=== PATIENT | female | born 1990 | race Caucasian/White ===

== ENCOUNTER 2023-08-18 07:47 | Day surgery (SDC) | payer OTHER, SELFPAY ==
[2023-08-11 15:04] VITALS: BMI 25.4
[2023-08-18] VITALS (26 sets, daily range): BP systolic 86–113; BP diastolic 50–72; PULSE 46–83; RESP 12–20; TEMP 36.1–37; O2SAT 95–100; BMI 25.4; BMI 27.2
--- NOTE | 2023-08-18 | PATH_ITS ---
[facility] Accession Number: [id number] No. of containers..01 Tissue . 01 Material submitted: . uterus - UTERUS, BILATERAL FALLOPIAN TUBES . 01 Diagnosis: UTERUS, BILATERAL FALLOPIAN TUBES, HYSTERECTOMY AND BILATERAL SALPINGECTOMY (PRESERVED OVARIES): Uterine weight: 95 grams. Cervix: Mild chronic cervicitis, negative for dysplasia or malignancy. Endometrium: Proliferative endometrium, without evidence of endometrial polyps, hyperplasia, atypia, or malignancy. Negative for adenomyosis (on commissary representative sections examined). Negative for leiomyomas (per gross description). Benign bilateral fallopian tubes and small paratubal cysts. Negative for atypia or malignancy. [facility] 08/23/2023 1517 Local . 01 Electronically signed: . Shawn Fatima MD, Pathologist NPI- [id number] . 01 Gross description: . Received in formalin with two identifiers and uterus and bilateral tubes, is an intact uterus (95 grams, 8.4 cm from superior to inferior, 5.9 cm from medial to lateral, and 4.1 cm from anterior to posterior) with attached cervix (3.0 x 2.9 cm), and two detached fallopian tubes (3.5 x 0.8 cm and 1.4 x 0.7 cm) with no additional adnexa. . The ectocervix is pink-mariano, smooth and glistening with a circular os 0.7 cm in diameter. The anterior paracervical margin is inked blue while the posterior paracervical margin is inked black. The serosa is mariano and ragged on the anterior surface with pinpoint areas of hemorrhage across an area measuring up to 1.2 cm in greatest dimension. . The endocervical canal has mariano herringbone mucosa measuring 2.7 cm in length. The endometrial cavity measures 2.3 cm from cornu to cornu and 4.3 cm in length with red, velvety endometrium that averages 0.1 cm thick. The myometrium is mariano with moderate trabeculation measuring up to 1.9 cm in maximum thickness with no lesions identified. . The longer tube has mariano smooth serosa with no cysts identified and a discontinuous stellate lumen. The shorter fallopian tube has mariano smooth serosa with no cysts identified. Sectioning reveals a possible stellate lumen. . [employer] sections are submitted as follows: A1: Anterior cervix. A2: Posterior cervix. A3: Anterior full thickness section. A$: Posterior full thickness section. A5: Roughened hemorrhagic serosa. A6: Longer fallopian tube to include one-half of bisected fimbriae and cross sections. A7: Entire shorter fallopian tube. ([id number]) /MRV 08/19/2023 2154 Local . 01 Pathologist provided ICD-10: N92.0, N94.6 . 01 CPT . 114130 Specimen Comment: A courtesy copy of this report has been sent to [phone] Performed at: 01 [facility] [address] [place] [address], [place], [place] [id number] MD David Durán MD Phone: [phone]
[2023-08-18] MEDS: LACTATED RINGERS 1,000 ML 42 ML IV ×3 (08:35→12:25)
[2023-08-18] MEDS: ACETAMINOPHEN 325 MG TABLET 975 MG PO ×2 (08:40→08:56)
--- NOTE | 2023-08-18 09:20 | PM.PREOP ---
Pre-operative Note COVID-19 COVID-19 status: Not tested Interval Note History & Physical reviewed/Exam performed by Physician: Yes Changes to H&P: No
[2023-08-18] MEDS: CEFAZOLIN 2 GM/100 ML PREMIX 100 ML IV (09:50)
--- NOTE | 2023-08-18 10:13 | SUR.OPER ---
Lithotomy on padded OR bed. [place] Pad Positioner under torso. Head on pillow, arms padded and tucked at sides. Legs secured in padded yellow fins stirrups.
[2023-08-18] MEDS: ROPIVACAINE 0.2% PF 2 MG/ML 10ML AMP 20 ML INJ (10:20)
[2023-08-18] MEDS: BUPIVACAINE 0.5% (PF) 30 ML, EPINEPHrine 0.15 MG INJ (10:21)
[2023-08-18] MEDS: ONDANSETRON 4 MG/2 ML INJ IV ×2 (11:40→16:49)
--- NOTE | 2023-08-18 11:46 | PM.GYNOP.1 ---
Operative Date/Time/Diagnoses Date of procedure: 08/18/23 Time of procedure: 10:00 Pre-op diagnosis: Menorrhagia Dysmenorrhea History of pelvic peritoneal endometriosis Post-op diagnosis: same Procedure & Clinicians Procedure: Procedures Operation Date: 08/18/23 09:15 Actual Procedure Side Surgeon p Laparoscopic Total Hysterectomy Pepe Alvarenga MD Indications: Christy is a , LMP 06/14/2023 who presents with progressively heavy periods lasting 6 days associated with severe dysmenorrhea and pelvic discomfort throughout entire menstrual cycle. Patient had been maintained on oral contraceptives up until having a bilateral salpingectomy performed in April 2022 at which time she discontinued her oral contraceptives. Since that time her periods have returned to their previous regularity but are heavier, lasting 6-7 days, and are associated with cramping and severe pain to the point where she is incapacitated for at least 4 5 days out of each cycle. Patient has been diagnosed previously with peritoneal endometriosis and she is concerned that her endometriosis may be returning following discontinuation of oral contraceptives. Patient's menses are regular but she does experience some occasional postcoital bleeding. Her last Pap was greater than 3 years ago but all of her Paps prior to that have been normal. Patient states that she underwent an laparoscopy in 2012 and [place] which demonstrated pelvic peritoneal endometriosis but no records are available for review. She has had 2 subsequent pregnancies, each delivered by section. Review of systems is also notable for some premenstrual spotting as well as some deep dyspareunia which is relatively new. Patient had a pelvic ultrasound performed at [facility] on 03/23/2023 which showed the uterus to be anteverted and normal in size measuring 8.9 x 5.2 x 3.4 cm. The myometrium is described as homogeneous. The endometrium measures 5.1 mm in combined thickness and a 6 mm posterior intramural myoma is noted. The right ovary measures 3.1 x 2.9 x 1.4 cm with a calculated ovarian volume of 6.6 cc. Left ovary measures 2.5 x 2.2 x 2.7 cm with a calculated ovarian volume of 7.7 cc. The ovaries both have a normal sonographic appearance with less than 12 follicles seen in each ovary. No adnexal masses were noted. No pathologic free abdominal or pelvic fluid is noted. Pap obtained and submitted; Normal Endometrial biopsy performed; Normal We had an extensive discussion regarding potential causes and treatments for her extremely heavy and painful periods. We discussed the option of hormonal therapy either in the form of control pills, Depo-Provera, or insertion of a Mirena IUD. Patient does not wish to pursue any of these options as no assurance can be given to her that in fact it will resolve her symptomatology. Instead she would very much like to proceed with hysterectomy and ovarian conservation. At the same time it would provide an opportunity to evaluate the pelvis for possible recurrent endometriosis as a contributor to her pain and that is very much the direction she would like to proceed. Pap will be current as of today's visit and due to her history of abnormal Paps in the past, a total laparoscopic hysterectomy would be prudent. In addition bilateral salpingectomy would be performed and those procedures were discussed at length with the patient. After considering all options she wants to proceed with TLH and bilateral salpingectomy with possible excision/fulguration of endometrial implants if found at the time of surgery. She presents today for her scheduled surgery. Surgeon: Pepe Alvarenga [employer] Specialist: Sultana Cramer Anesthesia Type: General Operative Notes Findings: The uterus is normal in size. There are dense adhesions involving the anterior surface the fundus to the anterior abdominal wall and these adhesions extend down to also involve bladder at the level of the hysterotomy site. Both tubes demonstrates changes consistent prior partial salpingectomy. Both ovaries appear normal. There was no evidence of endometriosis in the anterior cul-de-sac. There has an evidence of peritoneal scarring in the posterior cul-de-sac but no active areas endometriosis or seen. The remainder of the and pelvis are unremarkable to laparoscopic inspection. Closure Type: primary Specimen(s): left tube (Portion), right tube (Portion) and uterus Applied: catheter Estimated blood loss (mL): 100 Blood products transfused: none Procedure in detail: With the patient in modified dorsal lithotomy position preparations were made by prepping and draping the patient in usual manner for vaginal surgery and insertion of Dunlap catheter. A pre-surgical time-out was then taken in accordance with [facility] [place] policy. A bivalve speculum was then placed in the vagina and the cervix visualized. The anterior lip of the cervix was then grasped with a single-tooth tenaculum. The uterus was sounded to 9 cm, the endocervical canal dilated slightly, and a VCare uterine manipulator with a medium colpotomy cup was placed. The umbilicus was then infiltrated with 0.5% Marcaine with epinephrine. A 1 cm umbilical incision was made transversely and a Veress needle was used to insufflate the abdominal cavity with carbon dioxide. Once the abdomen was appropriately insufflated, a 5 mm trocar and sleeve were then placed through the umbilical incision. The scope was placed through the trocar and the initial assessment of the intra-abdominal contents carried out. A 2nd and 3rd 5 mm port was then placed 1st in the right mid quadrant from then the left mid quadrant by infiltration of the skin and subcutaneous tissues, a 1 cm transverse incision and insertion of the 5 mm bladeless port. Using a 3 puncture technique, the abdomen and pelvis were inspected laparoscopy. The adhesions involving the aspect uterine fundus and lower uterine segment were taken down with sharp and blunt dissection. Uterus is mobilized with the VCare manipulator and attention turned to the left adnexa. The distal tube was then grasped and the fimbria ovarica divided after coagulation with the PowerSeal device. The dissection was then carried out across the mesosalpinx and the distal tubal remnant was removed through 1 of the laparoscopy ports. The dissection was then carried down using the PowerSeal device so as to divide the utero-ovarian ligament and the round ligament with blunt and sharp dissection of the broad down to the level of the uterine artery. The uterine artery was then skeletonized after development of a bladder flap, coagulated, and divided. Once hemostasis was assured on the left side attention was turned to the right and the tube, utero-ovarian ligament, round ligament, and broad ligament were dissected in a fashion exactly the same as it had been on the left. The right uterine artery was then visualized after skeletonization and coagulated and divided. The uterus was seen to guevara after coagulation of both your arteries and the cup was identified through the vaginal muscularis at its insertion with the body of the cervix. Circumferential excision of the vaginal cup was accomplished without difficulty using monopolar current and the uterus mobilized. The uterus was then removed through the vagina and the vaginal cuff closed [id number] with a series of 0 Vicryl [id number] stitches. Hemostasis was excellent, the abdomen was re-insufflated, and the pelvis inspected laparoscopically. The pelvis was inspected for any abnormality or bleeding, and the ureters were each seen to be peristalsing freely. With complete hemostasis assured, the pneumoperitoneum was vented and the ports removed. All of the 5 mm ports were then closed with 4-0 Monocryl on the skin using inverted interrupted sutures. Skin glue was placed and after the glue was dried, an appropriate dressing was applied. The case was then terminated, the patient awakened, and then transferred to PACU after having tolerated the procedure well. Complications: none Post-operative Condition: stable Disposition: PACU Plan for aftercare: Recovery in ambulatory surgery in discharge home later today if pain is under control and she is tolerating oral intake well.
[2023-08-18] MEDS: hydrOXYzine 50 MG/ML INJ 25 MG IM (11:50)
[2023-08-18] MEDS: METOCLOPRAMIDE 10 MG/2 ML INJ IV (11:59)
[2023-08-18] MEDS: ACETAMINOPHEN 325 MG TABLET 650 MG PO ×2 (14:19→18:10)
[2023-08-18] MEDS: LACTATED RINGERS 1,000 ML 100 ML IV (14:20)
[2023-08-18 17:45] LABS: Hematocrit 31.3 % (36-46); Hemoglobin 10.6 g/dL (12.0-16.0)
[2023-08-18] MEDS: LACTATED RINGERS 500 ML 1000 ML IV (18:07)
[2023-08-18] MEDS: KETOROLAC 30 MG/ML VIAL IV (18:08)
--- NOTE | 2023-08-18 19:26 | PC.NURSE ---
Around 1715, after pt blood pressure had stabilized, pt told RN she thought she had to have a bowel movement. RN helped pt to bed side commode, pt unable to have bowel movement and RN helped pt back to bed. Pt felt a little lightheaded during transfer but did not get tunnel vision or did not feel like she would pass out. When RN got pt back to bed, RN noticed drops of bright red blood in the bed side commode. At this time RN was unsure if blood was coming from rectum or vagina. Rn took patients blood pressure when pt got back to bed several times and pt's blood pressure was consistently MAP <65, some MAPs in the 50s. RN assessed pt's abdomen, heard hyperactive bowel sounds but belly felt soft. RN ensured patient was safe, got another nurse to remain bedside, and RN called provider to relay events. RN further assessed patient and determined small amount of bright red blood had come from leonard insertion site. About 15-20 mins later, patients blood pressure came up with ordered bolus, and provider came bedside to assess. RN also reported how patient felt like she had to have a bowel movement, pt continued nausea and vomiting, and low urine output. Provider acknowledged concerns and placed orders. RN left patient after BP had stabilized with several readings of MAP >65 and pt asymptomatic (no lightheadedness/no dizziness).
[2023-08-19] MEDS: KETOROLAC 30 MG/ML VIAL IV ×2 (00:31→06:07)
[2023-08-19] MEDS: ACETAMINOPHEN 325 MG TABLET 650 MG PO (00:32)
[2023-08-19 06:00] VITALS: BP 108/60; PULSE 66; RESP 16; TEMP 36.4; O2SAT 100
[2023-08-19 06:03] VITALS: BP 122/73; PULSE 68; RESP 16; TEMP 36.4; O2SAT 100
[2023-08-19 06:23] LABS: Add Manual Diff / Slide Review NO; Basophils Absolute Auto 0 /uL (0-100); Basophils Percent Auto 0.3 % (0-2); Eosinophils Absolute Auto 0 /uL (0-450); Eosinophils Percent Auto 0.2 % (2-4); Hematocrit 30.6 % (36-46); Hemoglobin 10.6 g/dL (12.0-16.0); Lymphocytes Absolute Auto 2800 /uL (1100-4500); Mean Corpuscular HGB Conc 34.5 % (30-36); Mean Corpuscular Hemoglobin 31.1 PG (26-34); Mean Corpuscular Volume 90.1 fL (80-100); Monocytes Absolute Auto 1200 /uL (0-900); Monocytes Percent Auto 11.8 % (3-14); Neutrophils Absolute Auto 6000 /uL (1500-7000); Neutrophils Percent Auto 59.7 % (50-75); Platelet Count 234 X10^3/uL (150-400); Red Blood Cell Count 3.39 X10^6/uL (4.0-5.2); Red Cell Distribution Width 13.8 % (11.6-14.8); White Blood Cell Count 10.1 X10^3/uL (4.5-11.0)
[2023-08-19] MEDS: ONDANSETRON 4 MG/2 ML INJ IV (08:47)
[2023-08-19] MEDS: DOCUSATE 100 MG CAPSULE 200 MG PO (08:47)
--- NOTE | 2023-08-19 10:47 | PM.DS.1 ---
History of Present Illness History of Present Illness Date Patient Seen: 08/19/23 Time Patient Seen: 10:47 Chief complaint: Laparoscopic Total Hysterectomy Narrative: Christy is a , LMP 06/14/2023 who presents with progressively heavy periods lasting 6 days associated with severe dysmenorrhea and pelvic discomfort throughout entire menstrual cycle. Patient had been maintained on oral contraceptives up until having a bilateral salpingectomy performed in April 2022 at which time she discontinued her oral contraceptives. Since that time her periods have returned to their previous regularity but are heavier, lasting 6-7 days, and are associated with cramping and severe pain to the point where she is incapacitated for at least 4 5 days out of each cycle. Patient has been diagnosed previously with peritoneal endometriosis and she is concerned that her endometriosis may be returning following discontinuation of oral contraceptives. Patient's menses are regular but she does experience some occasional postcoital bleeding. Her last Pap was greater than 3 years ago but all of her Paps prior to that have been normal. Patient states that she underwent an laparoscopy in [facility] and [place] which demonstrated pelvic peritoneal endometriosis but no records are available for review. She has had 2 subsequent pregnancies, each delivered by section. Review of systems is also notable for some premenstrual spotting as well as some deep dyspareunia which is relatively new. Patient had a pelvic ultrasound performed at [facility] on 03/23/2023 which showed the uterus to be anteverted and normal in size measuring 8.9 x 5.2 x 3.4 cm. The myometrium is described as homogeneous. The endometrium measures 5.1 mm in combined thickness and a 6 mm posterior intramural myoma is noted. The right ovary measures 3.1 x 2.9 x 1.4 cm with a calculated ovarian volume of 6.6 cc. Left ovary measures 2.5 x 2.2 x 2.7 cm with a calculated ovarian volume of 7.7 cc. The ovaries both have a normal sonographic appearance with less than 12 follicles seen in each ovary. No adnexal masses were noted. No pathologic free abdominal or pelvic fluid is noted. Pap obtained and submitted; Normal Endometrial biopsy performed; Normal We had an extensive discussion regarding potential causes and treatments for her extremely heavy and painful periods. We discussed the option of hormonal therapy either in the form of control pills, Depo-Provera, or insertion of a Mirena IUD. Patient does not wish to pursue any of these options as no assurance can be given to her that in fact it will resolve her symptomatology. Instead she would very much like to proceed with hysterectomy and ovarian conservation. At the same time it would provide an opportunity to evaluate the pelvis for possible recurrent endometriosis as a contributor to her pain and that is very much the direction she would like to proceed. Pap will be current as of today's visit and due to her history of abnormal Paps in the past, a total laparoscopic hysterectomy would be prudent. In addition bilateral salpingectomy would be performed and those procedures were discussed at length with the patient. After considering all options she wants to proceed with TLH and bilateral salpingectomy with possible excision/fulguration of endometrial implants if found at the time of surgery. She presents for her scheduled surgery. Discharge Providers Provider Date of admission: 08/18/2023 Discharge Date: 08/19/23 Primary care physician: Remy Kinney MD Discharge provider: Pepe Alvarenga MD Summary Hospital Course Discharge Diagnosis: Menorrhagia Severe dysmenorrhea Status post total laparoscopic hysterectomy with removal of fallopian tube remnants Hospital Course: On 08/18/2023, the patient was admitted and underwent an uneventful total laparoscopic hysterectomy with removal of bilateral fallopian tube remnants. Full details of the procedure well summarized on my operative note of that date. Following surgery the patient has done extremely well with prompt return of bowel and bladder function, she is ambulating independently, tolerating regular diet, and her pain is well relieved with oral pain medications. She will be discharged at this time to home in an afebrile normotensive condition after counseling regarding precautionary symptoms, limitations of activity, medications, and plans for follow-up which will be in 2 weeks. Medications at discharge will include resumption of all preadmission medications (none), and Cipro 500 mg p.o. b.i.d. x5 days for UTI prophylaxis following catheterization. The patient will use [id number] Tylenol and/ or ibuprofen as needed for pain relief and increase the amount of iron rich foods in her diet.. Status at Discharge Cognitive/behavioral status at discharge: oriented Functional status at discharge: independent ambulation Overall status at discharge: patient is progressing back to baseline Time Spent with Patient Time spent: Less than 30 minutes Exam Vital Signs (past 8 hours): - 08/19/23 06:00 08/19/23 06:03 Temperature 97.6 F 97.6 F Pulse Rate 66 68 Respiratory Rate 16 16 Blood Pressure 108/60 122/73 Pulse Oximetry 100 100 Oxygen Flow Rate 0 0 Oxygen Delivery Method Room Air Oxygen Flow Rate 0 Const General: cooperative and comfortable Nutritional Appearance: average body habitus Orientation: alert and oriented x3 HENMT Head: normal to inspection, atraumatic and abrasion Ears: hearing grossly normal bilaterally Face and sinus: face symmetric Eyes General: appearance normal, both eyes and all related structures Conjunctivae: conjunctivae normal Sclera: sclerae normal EOM: EOM intact bilaterally Neck Neck: normal visual inspection Resp Effort & Inspection: normal respiratory effort and able to speak in complete sentences Auscultation: clear to auscultation bilaterally Cardio Rate: regular rate Rhythm: regular rhythm Heart Sounds: S1 normal, S2 normal and no murmurs GI Inspection: normal to inspection and incision (Surgical dressings clean and dry) Palpation: soft, no hepatosplenomegaly and tender (Mild, diffuse postsurgical tenderness) External Female Exam: other (No significant bleeding noted) Extrem General: no calf tenderness Psych Appearance: grossly normal Mental Status: mental status grossly normal Speech and Movement: speech and movement normal Mood: congruent mood Affect: normal affect Attitude: cooperative Thought Process: normal Thought Content: normal Judgment: judgment good Objective Labs 08/19/23 05:38 Labs: Laboratory Results - last 24 hr 08/18/23 08/19/23 17:35 05:38 WBC 10.1 RBC 3.39 L Hgb 10.6 L 10.6 L Hct 31.3 L 30.6 L MCV 90.1 MCH 31.1 MCHC 34.5 RDW 13.8 Plt Count 234 Neut % (Auto) 59.7 Lymph % (Auto) 28.0 [place] % (Auto) 11.8 Eos % (Auto) 0.2 L Baso % (Auto) 0.3 Neut # (Auto) 6000 Lymph # (Auto) 2800 [place] # (Auto) 1200 H Eos # (Auto) 0 Baso # (Auto) 0 PFSH Medical History (Updated 07/21/23 @ 20:42 by Court Egan) Eczema Migraines (~2005) Fractures (~2020) Human papilloma virus (~2009) Abnormal Pap smear of cervix (~2004) Kidney stones (~2009) History of endometriosis (~2012) Dysmenorrhea, unspecified (~2003) Menorrhagia with regular cycle Surgical History (Updated 07/21/23 @ 20:42 by Court Egan) Anesthesia History of tonsillectomy (~1999) History of laparoscopy (~2012) History of section Family History (Updated 07/21/23 @ 20:44 by Court Egan) Father Hypertension Grandmother Dementia Family/Other Type 1 diabetes Social History household members: spouse and children Smoking Status: Never smoker alcohol intake: current Discharge Assessment & Plan Assessment and Plan Assessment: Menorrhagia Severe dysmenorrhea Status post total laparoscopic hysterectomy with removal of fallopian tube remnants Anemia due to acute blood loss, operative Plan of Treatment: Routine postoperative care with follow-up planned for 2 weeks postop Discharge Plan Discharge Plan Patient Disposition: Home Provider Discharge Comment: Please review the written instructions you received when you were discharged from the hospital. Your follow-up appointment is scheduled for 2 weeks after your surgery and I forward to seeing you then. If however in the meanwhile you have any issues, concerns, questions, please contact me either through the office phone at [phone], or via the patient portal. Discharge orders & Medications Discharge Orders: Discharge (Order); Ordered 08/19/23 Ordered By: Pepe Alvarenga Prescriptions: New ciprofloxacin HCl [Cipro] 500 mg tablet 500 mg PO BID 5 Days Qty: 10 0RF Follow up/Referrals: Remy Kinney MD [Primary Care Provider] - Pepe Alvarenga MD [Physician] - Diet/Activity/Treatments Diet: Diet as Tolerated Activity: As tolerated Other treatments: Csev-mdw-[id number] Tylenol and/or ibuprofen may for additional pain relief. Mfsa-ofi-csocmdk stool softeners and/or MiraLax may used as needed for constipation. Skin/Wound/Dressing Care Report to your healthcare provider any signs of infection, such as:: chills, fever, increased pain, unusual drainage and unusual redness Dressing: Dressings should be removed on the morning of 08/20/2023 Visit Report/Discharge Packet Instructions: DI for Hysterectomy, DI for Laparoscopy, DI for Prescription Opioid Use Print Language: Peruvian Discharge Data Primary Care Provider: Remy Kinney Attending Provider: Pepe Alvarenga Quality VTE Deep Vein Thrombosis/Pulmonary Embolism Present on Admission: No
--- NOTE | 2023-08-19 15:50 | CM.DANOTE ---
Initial DCP Assessment Visit Note Reviewed EMR and team rounds for pt's medical status and updates. HIGH SCHOOL MATH TUTOR was unable to meet with pt f/f due to her leaving this morning before HIGH SCHOOL MATH TUTOR had the opportunity to see her. Per EMR and team, pt resides independently in her own home with her spouse and children, spouse transported her home at d/c once she was medically stable. No CM assistance or needs were identified during her stay. She acknowledged to staff understanding of her post-op instructions and surgery f/u appt. Payor: Healthcare Management Attending: Dr. Alvarenga Pt is a 33 year-old F post-op day 1 from a laparoscopic total hysterectomy surgery. She did well postoperatively and had no needs/concerns for discharge planning assistance. Discharge Planning/Care Management CM Discharge Assessment Start: 08/19/23 15:46 Freq: Status: Active Protocol: Document 08/19/23 15:46 DPL (Rec: 08/19/23 15:50 DPL [id number]) Discharge Planning Assessment Assigned Site Surveyor JING Hodge Advance Directives? No History Provided By Medical Record Expected Length of Stay 1 Prior Living Arrangements House Household Members spouse,children Type of transporation used prior to Drives own vehicle admit Independent with ADL's Yes Is patient alert and oriented? Yes Comment N/A Caregiver for Another Yes: children Comment No home identified d/c needs identified during admission. Barriers to Discharge No Discharge Plan Home Transportation Arrangement Spouse Referrals Initiated None needed Review Status In Process Please Provide Date Initial DC 08/19/23 Assessment Was Performed Pre-Anesthesia Assessment Start: 08/11/23 15:04 Freq: Status: Discharge Protocol: Document 08/11/23 15:04 CAB (Rec: 08/11/23 15:10 CAB [id number]) Pre-Anesthesia Assessment Patient Information Reviewed Via Chart Review Primary Care Provider Remy Kinney Seen Specialist in Last 12 Months Yes Specialist Seen Sales Enablement Manager Primary Language Bulgarian Assistant Men'S Soccer Coach Required No Height 162.56 cm Weight 67.132 kg Body Mass Index (BMI) 25.4 Barriers to Learning None Hx Anesthesia Reactions No Anesthesia Review Requested No Manager Ethics No Pain Present Pain Reported History of Falling (Recent or History of No ) Patient is completely paralyzed or No completely immobile Is patient on oxygen? No Hx Sleep Apnea No Currently Taking a Beta Jono No Anti-Coagulant Therapy No Has a Sales Representative Health Insurance No Cardiac Testing No Hx Pacemaker/ICD No Pacemaker Rep Required? No Cardiac Clearance Received Not Applicable Urinary Catheter Present No Hx Urinary Self Catheterization No Diabetes No Patient No Marital Status Lives With spouse,children Patient Discharge Plan Description Return Home
== END 2023-08-19 11:35 | disposition home or self-care (01) ==
LOC: OR 07:48 → AC 07:49
PROVIDERS: PCP Family Medicine Sports Medicine; Referring Provider Obstetrics & Gynecology; Visit Provider Obstetrics & Gynecology
PROC: 0UT94ZZ Resection of Uterus, Percutaneous Endoscopic Approach (ICD-10-PCS; CPT 58571; principal; 2023-08-18 09:15)
DX: N94.6 Dysmenorrhea, unspecified (principal); N92.0 Excessive and frequent menstruation with regular cycle; N73.6 Female pelvic peritoneal adhesions (postinfective); N83.8 Other noninflammatory disorders of ovary, fallopian tube and broad ligament
CPT/HCPCS: 58571; 36415; 85014; 85018; 85025; J0171; J0690; J1100; J1885; J2405; J2704; J2765; J2795; J3010; J3410